=== PATIENT | female | born 2000 | race Two or more races ===

== ENCOUNTER 2020-01-15 09:53 | Emergency (ER) | payer OTHER ==
[~2020-01-15] VITALS: Ht 152.4 cm; Wt 79.4 kg
== END 2020-01-15 15:16 | disposition home or self-care (01) ==
LOC: ER 09:53 → EMR PED 10:15
DX: B34.9 Viral infection, unspecified (principal); R55 Syncope and collapse; Z03.818 Encounter for observation for suspected exposure to other biological agents ruled out